=== PATIENT | male | born 2000 | race Two or more races ===

== ENCOUNTER 2024-03-05 23:44 | Emergency (ER) | payer SELFPAY ==
[~2024-03-05] VITALS: Ht 182.9 cm; Wt 115.9 kg
[2024-03-06] MEDS: KETOROLAC TROMETH 60MG/2ML VIAL IM ONE (00:54)
[2024-03-06 03:18] VITALS: BP 163/93; PULSE 103; RESP 18; TEMP 98; O2SAT 98
== END 2024-03-06 03:17 | disposition home or self-care (01) ==
LOC: ER 23:44
DX: R51.9 Headache, unspecified (principal); M25.552 Pain in left hip; M25.511 Pain in right shoulder; M25.562 Pain in left knee; M25.561 Pain in right knee; V89.2XXA Person injured in unspecified motor-vehicle accident, traffic, initial encounter; Y93.89 Activity, other specified; Y92.89 Other specified places as the place of occurrence of the external cause; Y99.8 Other external cause status
CPT/HCPCS: 70450; 73502; 73562; 73700; 96372; 99285; J1885